=== PATIENT | female | born 1965 | race Caucasian/White ===

== ENCOUNTER → 2017-10-31 | Outpatient (CLI) | payer OTHER ==
[~2017-10-31] MED LIST: FISH1000 PO; FLUO10 PO; HYDACE10B PO; IBUP400 PO; IBUP600 PO; OMEP20ER PO; PRAV20 PO; PROZAC; ZESTORETIC 20-1 EACH PO; [UNRECOGNIZED DRUG - OTHER]
[2017-11-02 12:10] LABS: HPV Genotype 16 Not Detected (NOTDET); HPV Genotype 18 Not Detected (NOTDET)
[2017-11-05 15:35] LABS: HPV High Risk Other Not Detected (NOTDET)
== END ==
LOC: LAB 18:06 → LAB SHORT 18:06
PROVIDERS: Nurse Practitioner Adult Health
DX: Z01.419 Encounter for gynecological examination (general) (routine) without abnormal findings (principal); A63.0 Anogenital (venereal) warts; I10 Essential (primary) hypertension; M51.36 Other intervertebral disc degeneration, lumbar region
CPT/HCPCS: 87624; G0123

== ENCOUNTER 2019-03-10 06:46 | Day surgery (SDC) | payer OTHER ==
[2019-03-10] MEDS ORDERED: GABA300 PO (07:18)
--- NOTE | 2019-03-10 07:59 | NUR ---
03/10/19 0759 Arash Lopez History, Chart, Medications and Allergies reviewed before start of procedure.MONITOR INTACT WITH CONTINUOUS PULSE OXIMETRY AND INTERMITTENT BP.3-LEAD EKG REVIEWED WITH PHYSICIAN PRIOR TO START OF PROCEDURE.O2 VIA N/C INTACT THROUGHOUT SEDATION/PROCEDURE. Patient confirms NPO status and agrees with scheduled surgery.PATIENT DETERMINED TO BE ASA APPROPRIATE FOR PROPOFOL SEDATION PRIOR TO START OF PROCEDURE BY DR. LOMBARDI.
--- NOTE | 2019-03-10 08:47 | NUR ---
Patient up to Ambulate independently. Gait steady. Discharge instructions reviewed with patient. Patient verbalizes understanding. Copy given to patient to take home. Patient States Post-Procedure ride home has been arranged. Discharged via wheelchair to private car for ride home.
== END 2019-03-10 22:40 | disposition home or self-care (01) ==
LOC: ORSCMMR 06:46 → ORD 08:00 → ORSCMMR 08:00
PROVIDERS: Internal Medicine Gastroenterology
PROC: 0DB68ZX Excision of Stomach, Via Natural or Artificial Opening Endoscopic, Diagnostic (ICD-10-PCS; principal; 2019-03-10 08:00)
PROC: 0DB58ZX Excision of Esophagus, Via Natural or Artificial Opening Endoscopic, Diagnostic (ICD-10-PCS; principal; 2019-03-10 08:00)
PROC: 0DB48ZX Excision of Esophagogastric Junction, Via Natural or Artificial Opening Endoscopic, Diagnostic (ICD-10-PCS; principal; 2019-03-10 08:00)
DX: K22.70 Barrett's esophagus without dysplasia (principal); K44.9 Diaphragmatic hernia without obstruction or gangrene; I10 Essential (primary) hypertension; M79.7 Fibromyalgia; Z79.899 Other long term (current) drug therapy; F17.210 Nicotine dependence, cigarettes, uncomplicated
CPT/HCPCS: 88305; 88342; J2704; J7120

== ENCOUNTER 2021-09-14 06:54 | Day surgery (SDC) | payer OTHER ==
[~2021-09-14] VITALS: Ht 170.2 cm; Wt 65.5 kg
[~2021-09-14 06:54] MED LIST changes: +GABA300 PO
[2021-09-14] MEDS ORDERED: TRAM50 PO (07:13)
[2021-09-14] MEDS ORDERED: ALLO100 PO (07:13)
--- NOTE | 2021-09-14 08:24 | NUR ---
09/14/21 0824 Parish Sahni PATIENT DETERMINED TO BE ASA APPROPRIATE FOR PROPOFOL SEDATION PRIOR TO START OF PROCEDURE BY DR. LOMBARDI. 3-LEAD EKG REVIEWED WITH PHYSICIAN PRIOR TO START OF PROCEDURE. Patient to ENDO 1 History, Chart, Medications and Allergies reviewed before start of procedure. MONITOR INTACT WITH CONTINUOUS PULSE OXIMETRY AND INTERMITTENT BP. O2 VIA N/C INTACT THROUGHOUT SEDATION/PROCEDURE. PLACED ON NON REBREATHER AFTER FIRST 4 MINUTES OF SCOPE
--- NOTE | 2021-09-14 09:12 | NUR ---
Patient States Post-Procedure ride home has been arranged. Discharge instructions reviewed with patient. Patient verbalizes understanding. Copy given to patient to take home. Discharged via wheelchair to private car for ride home.
== END 2021-09-14 22:59 | disposition home or self-care (01) ==
LOC: ORSCMMR 06:54 → ORD 08:00 → ORSCMMR 22:59
PROVIDERS: Internal Medicine Gastroenterology
PROC: 0DBM8ZX Excision of Descending Colon, Via Natural or Artificial Opening Endoscopic, Diagnostic (ICD-10-PCS; principal; 2021-09-14 08:00)
PROC: 0DBH8ZX Excision of Cecum, Via Natural or Artificial Opening Endoscopic, Diagnostic (ICD-10-PCS; principal; 2021-09-14 08:00)
PROC: 0DBN8ZX Excision of Sigmoid Colon, Via Natural or Artificial Opening Endoscopic, Diagnostic (ICD-10-PCS; principal; 2021-09-14 08:00)
DX: Z12.11 Encounter for screening for malignant neoplasm of colon (principal); Z86.010 Personal history of colon polyps; D12.2 Benign neoplasm of ascending colon; D12.0 Benign neoplasm of cecum; K63.5 Polyp of colon; I10 Essential (primary) hypertension; M79.7 Fibromyalgia; G62.9 Polyneuropathy, unspecified; Z79.899 Other long term (current) drug therapy
CPT/HCPCS: 88305; J2704; J7120

== ENCOUNTER → 2023-01-25 | Outpatient (CLI) | payer OTHER ==
[~2023-01-25] MED LIST changes: +ALLO100 PO; +TRAM50 PO
[2023-01-29 15:08] LABS: HPV 16 Negative (Negative); HPV 18 Negative (Negative); HPV OTHER HR TYPES Negative (Negative)
== END | disposition home or self-care (01) ==
LOC: LAB SHORT 08:05 → LAB 08:05
PROVIDERS: Physician Assistant
DX: Z01.419 Encounter for gynecological examination (general) (routine) without abnormal findings (principal)
CPT/HCPCS: 87624; G0145

== ENCOUNTER 2024-07-24 07:43 | Day surgery (SDC) | payer OTHER ==
[~2024-07-24] VITALS: Ht 170.2 cm; Wt 65.2 kg
[~2024-07-24 07:43] MED LIST changes: +ALBUTEROL0.63 MG/3; +ALLOPURINOL100 M1 PO; +AMOCLA875 PO; +ATOR40TA PO; +Acetaminophen325 M1 PO; +CYCL10 PO; +LISI20 PO; +Lactated Ringer's 1,000 ML IV ONE; +NEURONTIN300 MG PO; +NICO21TP TOP; +OXAYDO5 M2 PO; +VISBIOME 112.51 EACH PO; +propofoL 50 ML IV ONE
[2024-07-24] MEDS ORDERED: ATOR40TA (08:37)
[2024-07-24] MEDS ORDERED: TRAM50 (08:37)
[2024-07-24] MEDS ORDERED: Lactated Ringer's 1,000 ML IV ONE (08:44)
[2024-07-24 09:55] VITALS: BP 132/74
== END 2024-07-24 09:53 | disposition home or self-care (01) ==
LOC: ORSCSDS 07:43
PROVIDERS: Surgery
PROC: 0DJD8ZZ Inspection of Lower Intestinal Tract, Via Natural or Artificial Opening Endoscopic (ICD-10-PCS; principal; 2024-07-24 09:15)
DX: R93.5 Abnormal findings on diagnostic imaging of other abdominal regions, including retroperitoneum (principal); K35.80 Unspecified acute appendicitis; E78.5 Hyperlipidemia, unspecified; Z86.0100 Personal history of colon polyps, unspecified; I10 Essential (primary) hypertension; Z87.11 Personal history of peptic ulcer disease; F17.210 Nicotine dependence, cigarettes, uncomplicated; Z79.899 Other long term (current) drug therapy
CPT/HCPCS: J2704; J7120

== ENCOUNTER 2024-10-02 09:22 | Day surgery (SDC) | payer OTHER ==
[~2024-10-02] VITALS: Ht 170.2 cm; Wt 68.9 kg
[2024-10-02] VITALS (12 sets, daily range): BP systolic 141–186; BP diastolic 75–102
[~2024-10-02 09:22] MED LIST changes: +ALBU90OI INH; +ALLO300 PO; -ALLOPURINOL100 M1 PO; +CeFAZolin Sodium 2,000 MG in NS 100 ML IV SCH; -Lactated Ringer's 1,000 ML IV ONE; +Lactated Ringer's 1,000 ML IV SCH; -NEURONTIN300 MG PO; -propofoL 50 ML IV ONE
[2024-10-02] MEDS ORDERED: CeFAZolin Sodium 2,000 MG VIAL ONE (10:01)
--- NOTE | 2024-10-02 10:22 | NUR ---
Ambulatory in Day Surgery. History, Chart, Medications and Allergies reviewed before start of procedure.Patient confirms NPO status and agrees with scheduled surgery. Pre-Op teaching done. Pt verbalizes understanding. Patient States Post-Procedure ride home has been arranged. Lungs clear T/O to Auscultation. Surgical site prepped with 2% Chlorhexidine cloth wipe.
[2024-10-02] MEDS ORDERED: Lidocaine HCl 2% 20 ML MDV ONE (10:26)
[2024-10-02] MEDS ORDERED: FentaNYL Citrate 50 MCG/ML 2 ML Injection ONE (10:26)
[2024-10-02] MEDS ORDERED: propofoL 20 ML IV ONE (10:26)
[2024-10-02] MEDS ORDERED: Rocuronium Bromide 10 MG/ML 5ML Injection IV ONE (10:27)
[2024-10-02] MEDS ORDERED: Ondansetron HCl 2 MG / ML 2ML Vial ONE ×2 (10:27→12:30)
[2024-10-02] MEDS ORDERED: Dexamethasone Sod Phos 10 MG/ML 1ML VIAL ONE (10:27)
[2024-10-02] MEDS ORDERED: Bupivacaine 0.5% HCl 5 MG/ML 30MLVIAL ONE (10:31)
[2024-10-02] MEDS ORDERED: Ketorolac Tromethamine 30mg Vial ONE (10:42)
[2024-10-02] MEDS ORDERED: Sugammadex Sodium 200 MG/2ML SDV (100 MG/ML) ONE (11:37)
[2024-10-02] MEDS ORDERED: HYDROmorphone HCl/Pf 1MG SYR ONE ×2 (11:43→12:21)
[2024-10-02] MEDS ORDERED: OxyCODONE 5 mg/Acetamin 325 mg TABLET PO PRN (12:20)
[2024-10-02] MEDS ORDERED: Morphine Sulfate 4 MG/1 ML Injection ONE (12:47)
--- NOTE | 2024-10-02 13:08 | NUR ---
PT TO DAY SURGERY STEP DOWN FROM PACU; BEDSIDE REPORT RECEIVED. PT IS AWAKE, ALERT AND ORIENTED. PT HAS 3 ABD INCISION SITES THAT ARE COVERED WITH GUAZE AND TEGADERM ALL ARE C/D/I. PT REQUESTING WATER. PAIN LEVEL TOLERABLE AT THIS TIME
--- NOTE | 2024-10-02 13:21 | NUR ---
PT TOLERATING PO FLUIDS AND CRACKERS. INCISIONS REMAIN C/D/I.
--- NOTE | 2024-10-02 13:30 | NUR ---
ICE PACK TO ABD
--- NOTE | 2024-10-02 13:37 | NUR ---
Discharge instructions reviewed with patient. Patient verbalizes understanding. Copy given to patient to take home. Patient States Post-Procedure ride home has been arranged.
--- NOTE | 2024-10-02 14:01 | NUR ---
Patient up to Ambulate independently. Gait steady. Discharged via wheelchair to private car for ride home.
== END 2024-10-02 14:03 | disposition home or self-care (01) ==
LOC: ORSCMMR 09:22
PROVIDERS: Surgery
PROC: 0DTJ4ZZ Resection of Appendix, Percutaneous Endoscopic Approach (ICD-10-PCS; principal; 2024-10-02 11:00)
DX: K36 Other appendicitis (principal); K21.9 Gastro-esophageal reflux disease without esophagitis; E78.5 Hyperlipidemia, unspecified; I10 Essential (primary) hypertension; Z79.899 Other long term (current) drug therapy; F17.210 Nicotine dependence, cigarettes, uncomplicated
CPT/HCPCS: 88304; A9270; J0690; J1100; J1171; J1885; J2270; J2405; J2704; J3010; J7120

== ENCOUNTER 2025-03-02 06:29 | Day surgery (SDC) | payer OTHER ==
[~2025-03-02] VITALS: Ht 170.2 cm; Wt 65.3 kg
[~2025-03-02 06:29] MED LIST changes: -CeFAZolin Sodium 2,000 MG in NS 100 ML IV SCH; -Lactated Ringer's 1,000 ML IV SCH; +Lidocaine 1%-Epineph 1:100000 20 ML MDV ONE; +NS 500 ML IV ONE
[2025-03-02] MEDS ORDERED: CeFAZolin Sodium 2,000 MG VIAL ONE (06:52)
[2025-03-02] MEDS ORDERED: NS 500 ML IV ONE (06:54)
[2025-03-02] MEDS ORDERED: Midazolam HCl 1MG / ML 2ML Vial ONE ×2 (07:24→07:47)
--- NOTE | 2025-03-02 07:27 | NUR ---
03/02/25 0727 Елена Holguin IN FOR LOCAL PRE OP INJCTION. 7 CC LOCAL INJECTED TO L HAND AFTER TIME OUT PERFORMED. PT TOLERATED PROCEDURE WELL. CALL LIGHT IN REACH
[2025-03-02] MEDS ORDERED: Ketorolac Tromethamine 30mg Vial ONE (08:00)
[2025-03-02 08:09] VITALS: BP 112/61
== END 2025-03-02 08:42 | disposition home or self-care (01) ==
LOC: ORSCSDS 06:29
PROVIDERS: Orthopaedic Surgery
PROC: 0JBH0ZX Excision of Left Lower Arm Subcutaneous Tissue and Fascia, Open Approach, Diagnostic (ICD-10-PCS; principal; 2025-03-02 08:00)
PROC: 01N54ZZ Release Median Nerve, Percutaneous Endoscopic Approach (ICD-10-PCS; principal; 2025-03-02 08:00)
DX: G56.03 Carpal tunnel syndrome, bilateral upper limbs (principal); K21.9 Gastro-esophageal reflux disease without esophagitis; I10 Essential (primary) hypertension; E78.5 Hyperlipidemia, unspecified; M10.9 Gout, unspecified; F17.210 Nicotine dependence, cigarettes, uncomplicated; Z79.899 Other long term (current) drug therapy
CPT/HCPCS: 88304; 88313; J0690; J1885; J2250; J2704; J7040

== ENCOUNTER 2025-04-13 06:30 | Day surgery (SDC) | payer OTHER ==
[~2025-04-13] VITALS: Ht 170.2 cm; Wt 62.4 kg
[~2025-04-13 06:30] MED LIST changes: -Lidocaine 1%-Epineph 1:100000 20 ML MDV ONE; -NS 500 ML IV ONE
[2025-04-13] MEDS ORDERED: CeFAZolin Sodium 2,000 MG VIAL ONE (06:40)
--- NOTE | 2025-04-13 07:18 | NUR ---
04/13/25 0718 Kaitlynn Cardenas TIME OUT PERFORMED AT [address] SPIVEY AT BEDSIDE IMMEDIATELY PRIOR TO INJECTION OF 6ML OF SOLUTION CONSISTING OF 9ML 1% LIDOCAINE WITH EPI [id number] AND 1 ML 8.4% SODIUM BICARBONATE. CALL LIGHT IN PLACE. PT TOLERATED PROCEDURE WELL.
[2025-04-13 08:07] VITALS: BP 123/63
--- NOTE | 2025-04-13 08:48 | NUR ---
04/13/25 0848 Tino Watson PT DENIES PAIN AND NAUSEA AT THIS TIME. PT AGREEABLE TO D/C HOME WITH SPOUSE DEISY.
== END 2025-04-13 08:43 | disposition home or self-care (01) ==
LOC: ORSCSDS 06:30
PROVIDERS: Orthopaedic Surgery
PROC: 01N54ZZ Release Median Nerve, Percutaneous Endoscopic Approach (ICD-10-PCS; principal; 2025-04-13 08:00)
DX: G56.01 Carpal tunnel syndrome, right upper limb (principal); I10 Essential (primary) hypertension; K21.9 Gastro-esophageal reflux disease without esophagitis; Z79.899 Other long term (current) drug therapy; Z87.891 Personal history of nicotine dependence
CPT/HCPCS: J0690; J2704; J7120